=== PATIENT | male | born 1990 | race Caucasian/White ===

== ENCOUNTER 2016-08-13 15:40 | Emergency (ER) | payer SELFPAY ==
[2016-08-13] MEDS ORDERED: Ondansetron INJ* 2 MG/ML VIAL IV ONE (16:26)
[2016-08-13] MEDS ORDERED: Famotidine IV* 10 MG/ML 2 ML (20 mg) IV SLOW PU ONE (16:26)
--- NOTE | 2016-08-13 17:43 | UC ---
Abdominal Pain Male HPI - HPI Summary HPI Summary: 25 yo male with the onset of left flank pain yesterday some radiation to back some radiation to left groin no f/c no UTI symptoms vomited 5 times yesterday diarrhea x 1 today - History of Current Complaint Chief Complaint: UCGI Stated Complaint: ABDOMINAL PAIN/VOMITING Time Seen by Provider: 08/13/16 16:08 Hx Obtained From: Patient Onset/Duration: Gradual Onset, Lasting Days - 1 Timing: Constant Severity Initially: Moderate - 7 Pain Intensity: 7 Pain Scale Used: 0-10 Numeric Location: Other - left upper quadrent Radiates: Yes Radiates to: Back, Inguinal Character: Colicy Aggravating Factor(s):: Nothing Associated Signs And Symptoms: Positive: Vomiting, Diarrhea - Allergies/Home Medications Allergies/Adverse Reactions: Allergies Allergy/AdvReac Type Severity Reaction Status Date / Time No Known Allergies Allergy Verified 08/13/16 15:57 PMH/Surg Hx/FS Hx/Imm Hx Previously Healthy: Yes Endocrine History Of: Denies: Diabetes, Thyroid Disease Cardiovascular History Of: Denies: Cardiac Disorders, Hypertension Respiratory History Of: Denies: COPD, Asthma GI/ History Of: Denies: Ulcer - Surgical History Surgical History: None - Family History Known Family History: Positive: Unknown - adopted - Social History Alcohol Use: Rare Substance Use Type: None Smoking Status (MU): Light Every Day Tobacco Smoker Review of Systems Constitutional: Negative Skin: Negative Eyes: Negative ENT: Negative Respiratory: Negative Cardiovascular: Negative Gastrointestinal: Abdominal Pain, Vomiting, Diarrhea Genitourinary: Negative Motor: Negative Neurovascular: Negative Musculoskeletal: Negative Neurological: Negative Psychological: Negative All Other Systems Reviewed And Are Negative: Yes Physical Exam Triage Information Reviewed: Yes Appearance: Well-Appearing, No Pain Distress, Well-Nourished Vital Signs: Initial Vital Signs Temp 98.6 F 08/13/16 15:43 Pulse 74 08/13/16 15:43 Resp 20 08/13/16 15:43 BP 138/90 08/13/16 15:43 Pulse Ox 97 08/13/16 15:43 Eyes: Positive: Conjunctiva Clear ENT: Positive: Hearing grossly normal, TMs normal. Negative: Nasal congestion, Nasal drainage, Trismus, Muffled/hoarse voice Neck: Positive: Supple, Nontender Respiratory: Positive: Lungs clear, Normal breath sounds, No respiratory distress Cardiovascular: Positive: RRR, No Murmur Abdomen Description: Positive: Soft. Negative: Nontender - tender epigastrium and LUQ >> LLQ, Bruit, Distended, Hernia @, Hepatomegaly, Peritoneal Signs, Pulsatile Mass, Splenomegaly Bowel Sounds: Positive: Present Musculoskeletal: Positive: ROM Intact, No Edema Neurological: Positive: Alert Psychological Exam: Normal Skin Exam: Normal Re-Evaluation - Re-Evaluation First Eval Re-Evaluation Time: 17:38 Change: Improved Comment: nausea gone/ pain 09/24 Abd Pain Male Course/Dx - Course Course Of Treatment: see CT results- - Differential Dx/Clinical Impression Provider Diagnoses: abdominal pain of uncertain cause. ? PUD vs gastritis vs other Discharge - Discharge Plan Condition: Stable Disposition: HOME Prescriptions: Omeprazole CAP* [Prilosec CAP* 20 MG] 20 mg PO BEDTIME #14 cap. Ondansetron TAB* [Zofran Tab*] 4 mg PO Q6H PRN #10 tab PRN Reason: Nausea Patient Education Materials: Abdominal Pain (ED) Referrals: [facility] [place] [facility] [Outside] (you need to find a primary MD. Call this number for help) Saurav Valentine MD [Medical Doctor] - As Soon As Possible Additional Instructions: I am unsure of the cause of your abd pain avoid advil/aleve/aspirin/caffeine for now to er for new or worsening symptoms/especially blood in vomit or stool/increase pain or fever Dr Valentine is a gi doctor
--- NOTE | 2016-08-13 18:14 | RAD ---
CLINICAL HISTORY: Left flank pain radiating to groin COMPARISON: None TECHNIQUE: Multiple contiguous axial CT scans were obtained of the abdomen and pelvis, without intravenous contrast enhancement. Coronal and sagittal multiplanar reformations are submitted for review. Oral contrast was not administered. FINDINGS: The study is limited by the lack of intravenous contrast. This limits evaluation of the solid organs and vasculature. LUNG BASES: The lung bases are clear. LIVER: The liver is normal in shape, size, contour, and attenuation. BILE DUCTS: There is no intrahepatic or extrahepatic biliary dilatation. GALLBLADDER: The gallbladder is normal, without pericholecystic inflammatory change. PANCREAS: The pancreas is normal, without mass or ductal dilatation. SPLEEN: Normal in size and appearance. UPPER GI TRACT: Evaluation of the gastrointestinal tract is limited by incomplete gastric distention. The upper GI tract is unremarkable. SMALL BOWEL AND MESENTERY: The small bowel is normal in contour, course, and caliber. There is no obstruction or dilatation. COLON: The colon is normal in contour, course, caliber. There is no pericolonic inflammatory change. There is a tubular, vermiform, hollow viscus that is blind ending, and originates from the cecum, consistent with a normal appendix. There is no periappendiceal inflammatory change. ADRENALS: Normal bilaterally. KIDNEYS: The kidneys are normal in shape, size, contour, and axis. There is no hydronephrosis or nephrolithiasis. BLADDER: The bladder is smooth in contour. PELVIC ORGANS: The prostate gland is normal. The seminal vesicles are symmetric. AORTA: The aorta is normal. IVC: Unremarkable LYMPH NODES: There is no lymphadenopathy by size criteria. ABDOMINAL WALL: There is no evidence for abdominal wall hernia. BONES AND SOFT TISSUES: Unremarkable OTHER: None IMPRESSION: NO HYDRONEPHROSIS OR NEPHROLITHIASIS
== END 2016-08-13 18:44 | disposition home or self-care (01) ==
LOC: UCEAST 15:40
DX: R10.9 Unspecified abdominal pain (principal); R11.11 Vomiting without nausea; R19.7 Diarrhea, unspecified; F17.210 Nicotine dependence, cigarettes, uncomplicated
CPT/HCPCS: 74176; 81003; 96365; 96374; 96375; 99212; G0463; J2405

== ENCOUNTER 2018-06-17 16:18 | Emergency (ER) | payer SELFPAY ==
--- NOTE | 2018-06-17 17:10 | ED ---
Palpitations / Dysrhythmia - HPI Summary HPI Summary: Patient is a 27-year-old male who presents emergency department for evaluation of feeling his heart beat fast just prior to arrival. 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 He states his heartbeat was around 109 bpm.. Associated symptoms of shortness of breath and feeling faint. Patient states he sat down and the symptoms improved. He presents for evaluation. Currently in the ER he is at his baseline. He denies recent illness, fever, cough, sore throat, vomiting, diarrhea, abdominal pain. He denies drug or alcohol use. He admits to drinking a cup of coffee in the morning but otherwise denies excessive caffeine use. He is unaware of his family history. Symptoms are mild in severity. No current modifying factors. - History of Current Complaint Chief Complaint: EDDysrhythmPalp Time Seen by Provider: 06/17/18 16:41 Hx Obtained From: Patient - Allergy/Home Medications Allergies/Adverse Reactions: Allergies Allergy/AdvReac Type Severity Reaction Status Date / Time No Known Allergies Allergy Verified 06/17/18 16:43 Home Medications: Home Medications NK [No Home Medications Reported] 06/17/18 [History Confirmed 06/17/18] PMH/Surg Hx/FS Hx/Imm Hx Previously Healthy: Yes Endocrine/Hematology History: Denies: Hx Diabetes, Hx Thyroid Disease Cardiovascular History: Denies: Hx Hypertension Respiratory History: Denies: Hx Asthma, Hx Chronic Obstructive Pulmonary Disease (COPD) GI History: Denies: Hx Ulcer Infectious Disease History: No Infectious Disease History: Denies: Hx Hepatitis, Hx Human Immunodeficiency Virus (HIV), Traveled Outside the [place] in Last 30 Days - Family History Known Family History: Positive: Unknown - adopted - Social History Occupation: Employed Full-time Lives: With Family Alcohol Use: None Substance Use Type: Reports: None Smoking Status (MU): Former Smoker Review of Systems Constitutional: Negative Negative: Fever, Chills Eyes: Negative ENT: Negative Positive: Palpitations. Negative: Chest Pain Positive: Shortness Of Breath Gastrointestinal: Negative Negative: Abdominal Pain, Vomiting, Diarrhea, Nausea Musculoskeletal: Negative Skin: Negative Neurological: Negative All Other Systems Reviewed And Are Negative: Yes Physical Exam Triage Information Reviewed: Yes Vital Signs On Initial Exam: Initial Vitals Temp Pulse Resp BP Pulse Ox 98.1 F 69 18 141/84 96 06/17/18 16:24 06/17/18 16:24 06/17/18 16:24 06/17/18 16:24 06/17/18 16:24 Vital Signs Reviewed: Yes Appearance: Positive: Well-Appearing - Pt. sitting up in bed in NAD. Anxious. Skin: Positive: Warm, Dry Head/Face: Positive: Normal Head/Face Inspection Eyes: Positive: Normal, EOMI Neck: Positive: Supple Respiratory/Lung Sounds: Positive: Clear to Auscultation, Breath Sounds Present Cardiovascular: Positive: Normal, RRR. Negative: Murmur Neurological: Positive: Normal, CN Intact II-III Psychiatric: Positive: Affect/Mood Appropriate Diagnostics - Vital Signs Vital Signs Temp Pulse Resp BP Pulse Ox 06/17/18 16:37 69 18 126/76 98 06/17/18 16:24 98.1 F 69 18 141/84 96 - Laboratory Lab Statement: Any lab studies that have been ordered have been reviewed, and results considered in the medical decision making process. Course/Dx - Course Course Of Treatment: Pt. presenting for a brief episode of feeling his heart beating fast. ECG done at 1632 shows a sinus bradycardia of 59bpm, normal axis, appropriate intervals, no ST elevatoin or depression. CXR is negative for acute findings. Pt.'s cardiac monitoring has been normal. Pt. reassured will dc home. To f.u with the [facility]. To return if sxs change or worsen. Pt. understands and agrees with plan. - Diagnoses Differential Diagnosis/HQI/PQRI: Positive: AV Block, Coronary Artery Disease, Pericarditis Provider Diagnoses: Palpitation Discharge - Sign-Out/Discharge Documenting (check all that apply): Patient Departure Patient Received Moderate/Deep Sedation with Procedure: No - Discharge Plan Condition: Improved Disposition: HOME Patient Education Materials: Heart Palpitations (ED) Referrals: [facility] [Outside] Additional Instructions: Call the [facility] tomorrow to schedule a follow up appointment Increase fluids and rest Avoid caffeine and alcohol use Return to ER if symptoms change or worsen - Billing Disposition and Condition Condition: IMPROVED Disposition: Home
[2018-06-17 17:32] VITALS: BP 110/69
== END 2018-06-17 17:31 | disposition home or self-care (01) ==
LOC: ED 16:18
DX: R00.2 Palpitations (principal); R06.02 Shortness of breath; Z87.891 Personal history of nicotine dependence
CPT/HCPCS: 71045; 93005; 99282

== ENCOUNTER 2018-11-19 07:35 | Emergency (ER) | payer OTHER ==
[2018-11-19 07:50] VITALS: BP 155/84
[2018-11-19] MEDS ORDERED: Penicillin VK TAB* 250 MG PO ONE (08:07)
--- NOTE | 2018-11-19 08:11 | UC ---
UC Dental HPI - HPI Summary HPI Summary: 28 yo male has had mild right lower dental pain x weeks to mos this week pain has increased and he has taken OTC meds now with right jaw swelling no fever or chills no hx heart murmur - History of Current Complaint Chief Complaint: UCDentalProblem Stated Complaint: TOOTH PAIN RT Time Seen by Provider: 11/19/18 07:47 Hx Obtained From: Patient Onset/Duration: Gradual Onset Severity: Moderate Pain Intensity: 6 Pain Scale Used: 0-10 Numeric Aggravating Factor(s): Heat Alleviating Factor(s): OTC Meds - dull pain Related History: Swelling Dental: 1 - abscess - Allergies/Home Medications Allergies/Adverse Reactions: Allergies Allergy/AdvReac Type Severity Reaction Status Date / Time black beans Allergy Anaphylatic Uncoded 11/19/18 07:51 Shock Home Medications: Home Medications Acetaminophen [Tylenol Extra Strength] 1,000 mg PO ONCE PRN 11/19/18 [History Confirmed 11/19/18] Ibuprofen [Advil] 1 tab PO ONCE PRN 11/19/18 [History Confirmed 11/19/18] Naproxen [Naproxen 375 mg tab] 1 tab PO BID 11/19/18 [History Confirmed 11/19/18 ] PMH/Surg Hx/FS Hx/Imm Hx Previously Healthy: Yes - Surgical History Surgical History: Yes Surgery Procedure, Year, and Place: ear surgeries - tubes, - Family History Known Family History: Positive: Unknown - adopted - Social History Alcohol Use: None Substance Use Type: None Smoking Status (MU): Former Smoker Amount Used/How Often: 5 cig/day Review of Systems All Other Systems Reviewed And Are Negative: Yes Constitutional: Positive: Negative Skin: Positive: Negative Eyes: Positive: Negative ENT: Positive: Dental Pain Respiratory: Positive: Negative Cardiovascular: Positive: Negative Gastrointestinal: Positive: Negative Genitourinary: Positive: Negative Motor: Positive: Negative Neurovascular: Positive: Negative Musculoskeletal: Positive: Negative Neurological: Positive: Negative Psychological: Positive: Negative Physical Exam Triage Information Reviewed: Yes Appearance: Well-Appearing, No Pain Distress, Well-Nourished Vital Signs: Initial Vital Signs Temp 98.8 F 11/19/18 07:45 Pulse 78 11/19/18 07:45 Resp 18 11/19/18 07:45 BP 155/84 11/19/18 07:45 Pulse Ox 96 11/19/18 07:45 Eyes: Positive: Conjunctiva Clear ENT: Positive: Hearing grossly normal. Negative: Nasal congestion, Nasal drainage, Trismus, Muffled voice, Hoarse voice Dental: Positive: Abscess @ - see image, Other: - absymal overall dentition with many rotted teeth and caries Neck: Positive: Supple, Nontender, No Lymphadenopathy Respiratory: Positive: Lungs clear, Normal breath sounds, No respiratory distress Cardiovascular: Positive: RRR, No Murmur Musculoskeletal: Positive: ROM Intact, No Edema Neurological: Positive: Alert Psychological Exam: Normal Skin Exam: Normal Dental Complaint Course/Dx - Differential Dx/Diagnosis Provider Diagnosis: Dental abscess, Elevated BP without diagnosis of hypertension Discharge - Sign-Out/Discharge Documenting (check all that apply): Patient Departure All imaging exams completed and their final reports reviewed: No Studies - Discharge Plan Condition: Stable Disposition: HOME Prescriptions: Penicillin VK 500 MG TAB(NF) [Penicillin VK 500 mg Tab] 500 mg PO QID #28 tab Patient Education Materials: Dental Abscess (ED) Referrals: [facility] [place] [facility] [Outside] - 2 Weeks (recheck BP in 2-12 weeks) Additional Instructions: you need to see a dentist when able you need to be rechecked in 48 hours if not markedly improved - Billing Disposition and Condition Condition: STABLE Disposition: Home
== END 2018-11-19 08:22 | disposition home or self-care (01) ==
LOC: UCEAST 07:35
DX: K04.7 Periapical abscess without sinus (principal); R03.0 Elevated blood-pressure reading, without diagnosis of hypertension; Z87.891 Personal history of nicotine dependence
CPT/HCPCS: 99212; A9270-GY; G0463

== ENCOUNTER 2018-11-23 21:39 | Emergency (ER) | payer OTHER ==
[2018-11-24] MEDS ORDERED: Clindamycin 600 MG/D5W BAG(*) 600 MG/50 ML BAG IV ONE (00:42)
[2018-11-24] MEDS ORDERED: Morphine 4 MG/ML VIAL (1 ml) 4 MG/ML VIAL IV ONE (00:42)
[2018-11-24] MEDS ORDERED: NS 0.9% 1000 ML** 1,000 ML IV ONE (00:42)
--- NOTE | 2018-11-24 01:05 | ED ---
Throat Pain/Nasal Congestion - HPI Summary HPI Summary: 28-year-old male presents with dental pain for the past couple days. He states he started on penicillin on Thursday and the swelling has increased. He states that has been taking ibuprofen for the pain. He states he is an extreme pain. pain is radiating to head causing headache. No nausea vomiting. No chest pain or shortness breath. No difficulty swallowing. states swelling feels like is moving down his neck. He has no medical conditions. - History of Current Complaint Chief Complaint: EDDentalPain Time Seen by Provider: 11/24/18 00:36 - Allergies/Home Medications Allergies/Adverse Reactions: Allergies Allergy/AdvReac Type Severity Reaction Status Date / Time black beans Allergy Anaphylatic Uncoded 11/19/18 07:51 Shock PMH/Surg Hx/FS Hx/Imm Hx Endocrine/Hematology History: Denies: Hx Diabetes, Hx Thyroid Disease Cardiovascular History: Denies: Hx Hypertension Respiratory History: Denies: Hx Asthma, Hx Chronic Obstructive Pulmonary Disease (COPD) GI History: Denies: Hx Ulcer - Surgical History Surgery Procedure, Year, and Place: ear surgeries - tubes, Infectious Disease History: No Infectious Disease History: Denies: Hx Hepatitis, Hx Human Immunodeficiency Virus (HIV), Traveled Outside the [place] in Last 30 Days - Family History Known Family History: Positive: Unknown - adopted, Non-Contributory - Social History Alcohol Use: None Substance Use Type: Reports: None Smoking Status (MU): Former Smoker Amount Used/How Often: 5 cig/day Review of Systems Negative: Fever Positive: Dental Pain Negative: Chest Pain Negative: Shortness Of Breath All Other Systems Reviewed And Are Negative: Yes Physical Exam Triage Information Reviewed: Yes Vital Signs On Initial Exam: Initial Vitals Temp Pulse Resp BP Pulse Ox 98.6 F 72 18 146/92 100 11/23/18 21:46 11/23/18 21:46 11/23/18 21:46 11/23/18 21:46 11/23/18 21:46 Vital Signs Reviewed: Yes Appearance: Positive: Well-Appearing Skin: Positive: Warm, Dry Head/Face: Positive: Normal Head/Face Inspection Eyes: Positive: Normal, EOMI, ETHAN, Conjunctiva Clear ENT: Positive: Pharynx normal, TMs normal, Trismus Dental: Positive: Other - swelling and tenderness over right side of jaw Neck: Positive: Tenderness @ - cervical right, Enlarged Nodes @ - cervical right Respiratory/Lung Sounds: Positive: Clear to Auscultation, Breath Sounds Present Cardiovascular: Positive: Normal, RRR Abdomen Description: Positive: Nontender, Soft Bowel Sounds: Positive: Present Musculoskeletal: Positive: Normal Neurological: Positive: Normal Psychiatric: Positive: Normal Diagnostics - Vital Signs Vital Signs Temp Pulse Resp BP Pulse Ox 11/23/18 23:53 99.3 F 79 18 141/92 99 11/23/18 21:46 98.6 F 72 18 146/92 100 - Laboratory Result Diagrams: 11/24/18 01:11 11/24/18 01:11 Lab Statement: Any lab studies that have been ordered have been reviewed, and results considered in the medical decision making process. Re-Evaluation - Re-Evaluation First Eval Re-Evaluation Time: 02:29 Change: Improved Comment: feeling better after pain medication EENT Course/Dx - Course Course Of Treatment: 28-year-old male presents with dental pain for the past couple days. He states he started on penicillin on Thursday and the swelling has increased. He states that has been taking ibuprofen for the pain. He states he is an extreme pain. pain is radiating to head causing headache. No nausea vomiting. No chest pain or shortness breath. No difficulty swallowing. states swelling feels like is moving down his neck. He has no medical conditions. On exam has swelling and tenderness noted to the right side of neck and jaw. Trismus is present. gave dose of clindmaycin and morphine and pain improved. with worsening swelling while being on antibiotics got CT. patient will be signed out to dr walls pending CT. - Differential Diagnoses Differential Diagnoses: Dental Abscess, Dental Caries, Fractured Tooth - Diagnoses Provider Diagnoses: Dental abscess Discharge - Sign-Out/Discharge Documenting (check all that apply): Sign-Out Patient Signing out patient TO: Bronson Walls - Discharge Plan Referrals: No Primary Care Phys,NOPCP [Primary Care Provider] -
[2018-11-24 01:21] LABS: Hematocrit 43 % (42-52); Hemoglobin 14.7 g/dL (14.0-18.0); Mean Corpuscular HGB Conc 34 g/dL (31-36); Mean Corpuscular Hemoglobin 30 pg (27-31); Mean Corpuscular Volume 88 fL (80-94); Mean Platelet Volume 8.7 fL (7.4-10.4); Platelet Count 244 10^3/uL (150-450); Red Blood Count 4.91 10^6 /uL (4.18-5.48); Red Cell Distribution Width 14 % (10-15); White Blood Count 16.9 10^3/uL (3.5-10.8)
[2018-11-24 01:38] LABS: Albumin 4.3 g/dL (3.2-5.2); Albumin/Globulin Ratio 1.4 (1-3); BUN/Creatinine Ratio 22.1 (8-20); Calcium 9.7 mg/dL (8.6-10.3); EGFR African American 145.6 (>60); EGFR Non-African American 120.3 (>60); Potassium 4.1 mmol/L (3.5-5.0); Total Bilirubin 0.9 mg/dL (0.2-1.0); Total Protein 7.3 g/dL (6.4-8.9)
[2018-11-24 01:48] LABS: ABS Basophils 0.1 10^3/ul (0-0.2); ABS Eosinophils 0.1 10^3/ul (0-0.6); ABS Lymphocytes 2.1 10^3/ul (1.0-4.8); ABS Monocytes 1.8 10^3/ul (0-0.8); ABS Neutrophils 12.8 10^3/ul (1.5-7.7); Eosinophil % 0.6 %; Lymphocyte % 12.3 %; Nucleated Red Blood Cells % 0.1
[2018-11-24] MEDS ORDERED: Iohexol 300* (CONTRAST) 10 ML SDV IV ONE (01:48)
[2018-11-24] MEDS ORDERED: Clindamycin 600 MG IVPREMIX(* 600 MG/50 ML SDV IV ONE (02:00)
[2018-11-24] MEDS ORDERED: Ketorolac INJ* 30 MG/ML 1 ML VIAL IV PUSH ONE (02:28)
--- NOTE | 2018-11-24 04:00 | ED ---
Progress - Progress Note Progress Note: This patient was signed out from YARI Fu, upon shift change at 02: 30 11/24/18, awaiting CT Neck and pending disposition. CT Neck shows, per radiologist, Right periodontal abscess posterior medial right mandible. Associated right mandibular molar dental caries and radicular cysts. ED physician has reviewed this report. Re-Evaluation - Re-Evaluation First Eval Re-Evaluation Time: 04:03 Comment: discussed discharge plan. the patient is agreeable to discharge Course/Dx - Course Course Of Treatment: This patient was signed out from YARI Fu, upon shift change at 02:30 11/24/18, awaiting CT Neck and pending disposition. CT Neck shows, per radiologist, Right periodontal abscess posterior medial right mandible. Associated right mandibular molar dental caries and radicular cysts. Patient will be discharged home with prescription for Percocet and clindamycin. Patient was instructed to follow up with a dentist. The patient is agreeable to this plan. - Diagnoses Provider Diagnoses: Dental abscess Discharge - Sign-Out/Discharge Documenting (check all that apply): Patient Departure - Discharge Patient Received Moderate/Deep Sedation with Procedure: No - Discharge Plan Condition: Good Disposition: HOME Prescriptions: Clindamycin HCl 300 mg PO TID #30 capsule oxyCODONE/Acetamin 5/325 MG* [Percocet 5/325 TAB*] 1 tab PO Q4H PRN #12 tab MDD 5 PRN Reason: Pain Patient Education Materials: Dental Abscess (ED) Referrals: No Primary Care Phys,NOPCP [Primary Care Provider] - Additional Instructions: The CT scan showed what we expected, which is a dental abscess. I have added another antibiotic to the penicillin and hopefully that will get this under control. However it is important that you have followup with a dentist, as we do not have the expertise nor the equipment to address this dental problem definitively. The abscess will need proper drainage, which may involve extraction of the tooth or a root canal. - Billing Disposition and Condition Condition: GOOD Disposition: Home - Attestation Statements Document Initiated by Scribe: Yes Documenting Scribe: Josephine Redmond Provider For Whom Scribe is Documenting (Include Credential): Bronson Álvarez MD Scribe Attestation: I, Josephine Redmond, scribed for Bronson Álvarez MD on 11/25/18 at 0436. Scribe Documentation Reviewed: Yes Provider Attestation: The documentation as recorded by the scribe, Josephine Redmond accurately reflects the service I personally performed and the decisions made by me, Bronson Álvarez MD Status of Scribe Document: Viewed
[2018-11-24 04:11] VITALS: BP 139/81
== END 2018-11-24 04:11 | disposition home or self-care (01) ==
LOC: ED 21:39
DX: K04.7 Periapical abscess without sinus (principal); Z87.891 Personal history of nicotine dependence
CPT/HCPCS: 36415; 70491; 80053; 83605; 85025; 96361; 96365; 96375; 99283; J1885; J2270

== ENCOUNTER 2018-11-26 16:09 | Emergency (ER) | payer OTHER ==
--- NOTE | 2018-11-26 19:15 | ED ---
Throat Pain/Nasal Congestion - HPI Summary HPI Summary: This patient is a 28 year old male presenting to [facility] with a chief complaint of dental pain since 10 days ago. The patient states he was seen previously for several broken teeth on the right side and his abx and pain medication have not worked. He saw his dentist yesterday and he stated he cannot do anything until the swelling resides, which he has not, and he should come back to the ED for IV abx. - History of Current Complaint Chief Complaint: EDDentalPain Time Seen by Provider: 11/26/18 19:05 Hx Obtained From: Patient Onset/Duration: Lasting Days - Allergies/Home Medications Allergies/Adverse Reactions: Allergies Allergy/AdvReac Type Severity Reaction Status Date / Time black beans Allergy Anaphylatic Uncoded 11/26/18 19:33 Shock PMH/Surg Hx/FS Hx/Imm Hx Endocrine/Hematology History: Denies: Hx Diabetes, Hx Thyroid Disease Cardiovascular History: Denies: Hx Hypertension Respiratory History: Denies: Hx Asthma, Hx Chronic Obstructive Pulmonary Disease (COPD) GI History: Denies: Hx Ulcer - Surgical History Surgery Procedure, Year, and Place: ear surgeries - tubes, Infectious Disease History: No Infectious Disease History: Denies: Hx Hepatitis, Hx Human Immunodeficiency Virus (HIV), Traveled Outside the [place] in Last 30 Days - Family History Known Family History: Positive: Unknown - adopted - Social History Alcohol Use: None Substance Use Type: Reports: None Smoking Status (MU): Former Smoker Amount Used/How Often: 5 cig/day Review of Systems Negative: Fever Positive: Dental Pain - and edema on right side All Other Systems Reviewed And Are Negative: Yes Physical Exam - Summary Physical Exam Summary: Appearance: Well-appearing, Well-nourished, lying in bed comfortably Skin: Warm, dry, no obvious rash Eyes: sclera anicteric, no conjunctival pallor ENT: mucous membranes moist, pharynx appears normal. Dental abscess on right side. Neck: Supple, nontender Respiratory: Clear to auscultation, no signs of respiratory distress Cardiovascular: Normal S1, S2. No murmurs. Normal distal pulses in tibial and radial bilaterally. Abdomen: Soft, nontender, normal active bowel sounds present Musculoskeletal: Normal, Strength/ROM Intact Neurological: A&Ox3, awake and alert, mentation is normal, speech is fluent and appropriate Psychiatric: affect is normal, does not appear anxious or depressed Triage Information Reviewed: Yes Vital Signs On Initial Exam: Initial Vitals Temp Pulse Resp BP Pulse Ox 98.2 F 82 16 146/96 100 11/26/18 16:22 11/26/18 16:22 11/26/18 16:22 11/26/18 16:22 11/26/18 16:22 Vital Signs Reviewed: Yes Diagnostics - Vital Signs Vital Signs Temp Pulse Resp BP Pulse Ox 11/26/18 18:25 101.6 F 84 16 168/93 100 11/26/18 16:22 98.2 F 82 16 146/96 100 - Laboratory Lab Statement: Any lab studies that have been ordered have been reviewed, and results considered in the medical decision making process. EENT Course/Dx - Course Course Of Treatment: This patient is a 28 year old male presenting to [facility] with a chief complaint of dental pain and swelling since 10 days ago. He saw his dentist yesterday and he stated he cannot do anything until the swelling resides, which he has not, and he should come back to the ED for IV abx, since he has failed oral abx penicillin and Clindamycin. Consulted with Dr. Edwards , Oral Surgery, at 192, who stated to contact the ENT physician photogrammetric compilation specialist for the patient. Dr. Barraza, ENT, was consulted at 1940, who stated he did not want to operate on him and recommended [facility] in [place]. The patient will be discharged as the patient states after the ED provider spoke with his dentist he found someone for him in [place] to take care of his dental problem, and he will proceed there tonight. This plan was discussed with the patient and he was agreeable with this plan. - Diagnoses Provider Diagnoses: Dental abscess - Provider Notifications Discussed Care Of Patient With: Mehdi Barraza - ENT Time Discussed With Above Provider: 19:40 Discharge - Sign-Out/Discharge Documenting (check all that apply): Patient Departure - Discharge Patient Received Moderate/Deep Sedation with Procedure: No - Discharge Plan Condition: Good Disposition: HOME Patient Education Materials: Dental Abscess (ED) Referrals: No Primary Care Phys,NOPCP [Primary Care Provider] - Additional Instructions: Proceed to [place] as per instructions of your dentist. - Billing Disposition and Condition Condition: GOOD Disposition: Home - Attestation Statements Document Initiated by Scribe: Yes Documenting Scribe: Arian Ornelas Provider For Whom Cesar is Documenting (Include Credential): Bronson Álvarez MD Scribe Attestation: I, Arian Ornelas, scribed for Bronson Álavrez MD on 11/27/18 at 0328. Scribe Documentation Reviewed: Yes Provider Attestation: The documentation as recorded by the Arian patel accurately reflects the service I personally performed and the decisions made by me, Bronson Álvarez MD Status of Scribe Document: Viewed
[2018-11-26 20:05] VITALS: BP 166/89
== END 2018-11-26 20:04 | disposition home or self-care (01) ==
LOC: ED 16:09
DX: K04.7 Periapical abscess without sinus (principal); Z87.891 Personal history of nicotine dependence
CPT/HCPCS: 99282